=== PATIENT | male | born 2000 | race Caucasian/White ===

== ENCOUNTER 2025-07-11 06:43 | Emergency (ER) | payer OTHER, SELFPAY ==
[2025-07-11] VITALS (50 sets, daily range): BP systolic 74–100; BP diastolic 32–62; PULSE 74–115; O2SAT 93–100; BMI 21.3
--- NOTE | 2025-07-11 06:40 | ECG_ITS ---
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 Measurements Intervals [place] Rate: 112 P: 61 FL: 120 QRS: 70 QRSD: 96 T: 12 QT: 320 QTc: 386 Interpretive Statements 1120 Sinus tachycardia 2420 RSR (QR) in lead V1/V2, consistent with right ventricular conduction delay 4068 Nonspecific [place] abnormality 9140 abnormal rhythm ECG No previous ECG available for comparison Electronically Signed On 07-11-2025 17:40:04 EDT by GALI ALVAREZ M.D.
--- NOTE | 2025-07-11 06:51 | ED.OVERDOSE1 ---
HPI HPI - Overdose General Chief Complaint: Overdose Stated Complaint: OVERDOSE Time Seen by Provider: 07/11/25 06:50 Source: other Source comment: EMS Mode of arrival: ambulance History of Present Illness HPI Narrative: This 25-year-old male is brought to the emergency department by EMS from a truck stop where he was found unresponsive in the bathroom. The patient was taken to [facility] yesterday by his uncle for a history of alcohol, benzodiazepine and other substance abuse. According to EMS he was able to obtain beer, kratom and benzodiazepines at the truck stop. He was poorly responsive upon their arrival and given 1 mg of IV Narcan with clinical improvement in his condition. Upon arrival he smells like alcohol and is smiling and poorly cooperative but not agitated. He was at [facility] for several hours earlier in the evening but there was not a doctor there and nobody attended to him so he called a car service and left. Related Data Allergies Allergy/AdvReac Type Severity Reaction Status Date / Time Sulfa (Sulfonamide Allergy Mild Hives Verified 07/11/25 06:51 Antibiotics) Review of Systems ROS Status of ROS 10 or more systems reviewed and unremarkable except as noted in history and below Exam Narrative Exam Narrative: Pt is awake, alert, appears intoxicated, smiling, cooperative but has difficulty following commands, pupils are 3 to 4 mm equal and reactive, mucous membranes are moist and pink, lungs are clear, abdomen is soft, lower extremities are nontender, he is moving all extremities. He smells of alcohol. Vital signs are stable. Constitutional Vital Signs, click to edit/add: Last Vital Signs Pulse 115 H 07/11/25 06:45 Resp 15 07/11/25 06:45 BP 100/62 07/11/25 06:45 Pulse Ox 99 07/11/25 06:45 O2 Del Method Room Air 07/11/25 06:45 Course Vital Signs Vital signs: Vital Signs Pulse Rate 115 H 07/11/25 06:45 Respiratory Rate 15 07/11/25 06:45 Blood Pressure 100/62 07/11/25 06:45 Pulse Oximetry 99 07/11/25 06:45 Oxygen Delivery Method Room Air 07/11/25 06:45 Pulse Rate 115 H 07/11/25 06:45 Respiratory Rate 15 07/11/25 06:45 Blood Pressure 100/62 07/11/25 06:45 Pulse Oximetry 99 07/11/25 06:45 Oxygen Delivery Method Room Air 07/11/25 06:45 MDM - Overdose MDM Narrative Medical decision making narrative: Patient is brought to emergency department by EMS from a truck stop after he was found unresponsive in a bathroom. He admits to using kratom, benzodiazepines and alcohol. He was given Narcan prior to arrival. His vital signs are stable with tachycardia upon arrival. He is awake alert, appears intoxicated, able to follow some commands, no gross focal deficits noted. EKG is a sinus tachycardia at 112 bpm with no acute changes. He was given IV fluids and placed on the awake overnight monitor. He will be observed while in the emergency department. He will be signed out to the incoming physician at 7 AM. Discharge Plan Discharge Patient Disposition: Still a Patient
[2025-07-11 07:03] LABS: Hematocrit 35.6 % (42.0-54.0); Hemoglobin 12.2 g/dL (14.0-18.0); Immature Granulocytes Abs Auto 0.01 10^3/uL (0.00-0.03); Immature Granulocytes Pct Auto 0.2 % (0.0-0.5); Lymphocytes Absolute Auto 2.0 10^3/uL (1.2-3.8); Mean Corpuscular HGB Conc 34.3 g/dL (29.9-35.2); Mean Corpuscular Hemoglobin 29.4 pg (25.9-34.0); Mean Corpuscular Volume 85.8 fL (80.0-94.0); Platelet Count 292 10^3/uL (150-450); Red Blood Count 4.15 10^6/uL (4.70-6.10); White Blood Count 5.3 10^3/uL (4.0-11.0)
--- OUTSIDE RECORDS SUMMARY | 2025-07-11 07:05 | XMS_ITS | Clinical Summary ---
Author Organization [facility] Address [address] [place] [address] Phone Care Team Providers Care Headline Writer Name Role Phone WaterfordBennie ellis Primary Care Provider [phone] Allergies Active AllergyReactionsCriticalityNoted DateCommentsSulfa (Sulfonamide Antibiotics)Other05/21/2025 Medications MedicationSigDispense QuantityRefillsLast FilledStart DateEnd DateStatus cloNIDine (Catapres) 0.1 mg tablet Take 1 tablet by mouth four times daily for 8 doses, then 1 tablet three times daily for 3 doses, then 1 tablet twice daily for 2 doses, then 1 tablet at bedtime on the final day 14 tablet 05/21/2025 4:57 PM EDT5Active PHENobarbital (Luminal) 16.2 mg tablet Take 4 tablets (64.8 mg) by mouth every 8 hours for 3 doses, THEN 3 tablets (48.6 mg) every 8 hoursfor 3 doses, THEN 2 tablets (32.4 mg) every 6 hours for 4 doses, THEN 2 tablets (32.4 mg) every 8 hours for 3 doses, THEN 1 tablet (16.2 mg) every 8 hours for 3 doses. 38 tablet 05/21/2025 4:57 PM EDT5Active hydrOXYzine HCL (Atarax) 50 mg tablet Take 1 tablet by mouth every 8 hours as needed 30 tablet 05/21/2025 4:57 PM EDT5Active traZODone (Desyrel) 50 mg tablet Take 1 tablet (50 mg) by mouth as needed at bedtime. 10 tablet 05/21/2025 4:57 PM EDT5Active nicotine polacrilex (Nicorette) 2 mg gum Chew and park 1 piece every 4 hours as needed 20 each 05/21/2025 4:57 PM EDT5Active ondansetron ODT (Zofran-ODT) 4 mg disintegrating tablet Dissolve 1 tablet (4 mg) in the mouth 3 times a day as needed. 10 tablet 05/21/2025 4:57 PM EDT5Active melatonin 3 mg tablet Take 1 tablet (3 mg) by mouth as needed at bedtime. 14 tablet 05/21/2025 4:57 PM EDT5Active diphenhydrAMINE (BENADryl) 25 mg capsule Take 1 capsule (25 mg) by mouth every 6 hours if needed. 12 capsule 05/21/2025 4:57 PM EDT5Active acetaminophen (Tylenol) 325 mg tablet Take 2 tablets (650 mg) by mouth every 4 hours if needed. 24 tablet 05/21/2025 4:57 PM EDT5Active ibuprofen 400 mg tablet Take 1 tablet (400 mg) by mouth every 6 hours if needed. 16 tablet 05/21/2025 4:57 PM EDT5Active thiamine (Vitamin B-1) 100 mg tablet Take 1 tablet (100 mg) by mouth 2 times a day. 28 tablet 05/21/2025 4:57 PM EDT5Active folic acid (Folvite) 1 mg tablet Take 1 tablet (1 mg) by mouth 2 times a day. 28 tablet 05/21/2025 4:57 PM EDT5Active naloxone (Narcan) 4 mg/0.1 mL nasal spray Instill one spray intranasally for opioid overdose; reapeat in 5 minutes if no response 2 each 05/21/2025 4:57 PM EDT5Active LORazepam (Ativan) 1 mg tablet take 1 to 2 tablet(s) by mouth every 4 hours as needed 6 tablet 05/22/2025 11:17 AM EDT5Active LORazepam (Ativan) 1 mg tablet Take 1 tablet (1 mg) by mouth once daily as needed. 3 tablet 05/23/2025 9:46 AM EDT5Active QUEtiapine (SEROquel) 50 mg tablet Take 1 tablet (50 mg) by mouth once daily at bedtime. 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 Last 3 Months Social History Tobacco UseTypesPacks/DayYears UsedDateSmoking Tobacco: Never AssessedSex and Gender InformationValueDate RecordedSex Assigned at BirthNot on fileLegal Sex Male08/12/2022 5:54 PM ESTGender IdentityNot on fileSexual OrientationNot on file Last Filed Vital Signs Vital SignReadingTime TakenCommentsBlood Aaavmpft224/65010/18/2022 5:41 PM EST Itfdu211210/18/2022 5:41 PM LSNRhwkhwnancl49.3 ??C (97.3 ??F)09/22/2022 3:15 PM ESTRespiratory Jwqm406609/22/2022 3:15 PM ESTOxygen Yakpciiqmn57%09/22/2022 3:15 PM ESTInhaled Oxygen Concentration--Ssowmn53.1 kg (148 lb 0.6 oz)10/18/2022 2:43 PM XNUYfpmph459.3 cm (5' 9 )10/18/2022 2:43 PM ESTBody Mass Index21.8610/18/2022 2:43 PM EST Plan of Treatment Health MaintenanceDue DateLast DoneCommentsLipid Panel1999Yearly Adult Rklslphh1999MMR Vaccines (1 of 1 - Standard series)2000Hepatitis A Vaccines (2 of 2 - 2-dose series)HPV Vaccines (1 - Male 3- dose series)2014Hepatitis B Vaccines (1 of 3 - 19+ 3-dose series) 2018DTaP/Tdap/Td Vaccines (2 - Td or Tdap)Influenza Vaccine (#1)2025OVID-19 Vaccine (1 - season)2025Zoster Vaccines (1 of 2)Meningococcal VaccineAged Out04/06/2012No longer eligible based on patient's age to complete this topicHIV Screening Ijtaznwkk70/05/2025Hepatitis C YefcsjapwKtjftbfff27/05/2025HIB VaccinesAged Out No longer eligible based on patient's age to complete this topicIPV VaccinesAged OutNo longer eligible based on patient's age to complete this topicPneumococcal Vaccine: Pediatrics and At-Risk Adult PatientsAged OutNo longer eligible based on patient's age to complete this topicRotavirus VaccinesAged OutNo longer eligible based on patient's age to complete this topic Procedures Procedure NamePriorityDate/TimeAssociated DiagnosisCommentsPHLEB CHARGE - VENIPUNCTURE (LAB USE ONLY)Aprqtjl0905/23/2025 11:00 AM EDT Encounter for general adult medical examination without abnormal findings Contact with and (suspected) exposure to other viral communicable diseases RUEYQXTAodndid42/05/2025 11:00 AM EDT Encounter for general adult medical examination without abnormal findings Contact with and (suspected) exposure to other viral communicable diseases HEPATITIS PANEL, LEHIDYwaazdc92/05/2025 11:00 AM EDT Encounter for general adult medical examination without abnormal findings Contact with and (suspected) exposure to other viral communicable diseases SYPHILIS SCREENING WITH QKYVULTwmejto92/05/2025 11:00 AM EDT Encounter for general adult medical examination without abnormal findings Contact with and (suspected) exposure to other viral communicable diseases HIV 1/2 ANTIGEN/ANTIBODY SCREEN WI REFLEX TO YFXMLJEECJHOYuynnkf38/05/2025 11:00 AM EDT Encounter for general adult medical examination without abnormal findings Contact with and (suspected) exposure to other viral communicable diseases CBC WITH AUTO BDWPGECPHSOORgonwff92/05/2025 11:00 AM EDT Encounter for general adult medical examination without abnormal findings Contact with and (suspected) exposure to other viral communicable diseases COMPREHENSIVE METABOLIC UZSJSEtqhwju56/05/2025 11:00 AM EDT Encounter for general adult medical examination without abnormal findings Contact with and (suspected) exposure to other viral communicable diseases BUPRENORPHINE SCREEN TO CONFIRM,IDFPVDzypqyq91/03/2025 2:40 PM EDT 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 GABAPENTIN,QCPIWKuowhtm72/03/2025 2:40 PM EDT Other [facility] (current) drug therapy DRUG SCREEN,OQQBVLibvyxj97/03/2025 2:40 PM EDT 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 from Last 3 Months Results * Phleb Charge - Venipuncture (Lab Use Only) (05/23/2025 11:00 AM EDT)Specimen (Source)Anatomical Location / LateralityCollection Method / VolumeCollection TimeReceived TimeBloodVenous blood specimen / Ohxzbyz2605/23/2025 11:00 AM EDT 05/23/2025 11:25 AM EDT Narrative Authorizing ProviderResult TypeResult StatusVincent E Coven PUBLIC STENOGRAPHER-CNPLAB BLOOD ORDERABLESFinal ResultPerforming OrganizationAddressCity/State/ZIP CodePhone Number [facility] [address] [place] [address] * (ABNORMAL) CBC and Auto Differential (05/23/2025 11:00 AM EDT)ComponentValue Ref RangeTest MethodAnalysis TimePerformed AtPathologist SignatureWBC4.2(L)4.4 - 11.3 x10*3/uL LAB HEMATOLOGY METHOD 05/23/2025 11:38 [facility] LABnRBC0.00.0 - 0.0 /100 WBCs LAB HEMATOLOGY METHOD 05/23/2025 11:38 AM [facility] LABRBC4.674.50 - 5.90 x10*6/uL LAB HEMATOLOGY METHOD 05/23/2025 11:38 AM [facility] CYQSzbuaczuqf04.513.5 - 17.5 g/dL LAB HEMATOLOGY METHOD 05/23/2025 11:38 AM [facility] OSCQtxhuliyin51.5(L)41.0 - 52.0 % LAB HEMATOLOGY METHOD 05/23/2025 11:38 AM [facility] FHJKIA1745 - 100 fL LAB HEMATOLOGY METHOD 05/23/2025 11:38 AM [facility] COBXIG70.926.0 - 34.0 pg LAB HEMATOLOGY METHOD 05/23/2025 11:38 AM [facility] ASYIMPW03.332.0 - 36.0 g/dL LAB HEMATOLOGY METHOD 05/23/2025 11:38 AM [facility] LFYVXB00.311.5 - 14.5 % LAB HEMATOLOGY METHOD 05/23/2025 11:38 AM [facility] IMOPrdyuslib564(H)150 - 450 x10*3/uL LAB HEMATOLOGY METHOD 05/23/2025 11:38 AM [facility] LABNeutrophils %48.640.0 - 80.0 % LAB HEMATOLOGY METHOD 05/23/2025 11:38 AM [facility] LABImmature Granulocytes %, Automated0.50.0 - 0.9 % LAB HEMATOLOGY METHOD 05/23/2025 11:38 AM [facility] LABComment:Immature Granulocyte Count (IG) includes promyelocytes, myelocytes and metamyelocytes but does not i nclude bands. Percent differential counts (%) should be interpreted in the context of the absolute cell counts (cells/UL).Lymphocytes %43.513.0 - 44.0 % LAB HEMATOLOGY METHOD 05/23/2025 11:38 AM [facility] LABMonocytes %5.22.0 - 10.0 % LAB HEMATOLOGY METHOD 05/23/2025 11:38 AM [facility] LABEosinophils %1.20.0 - 6.0 % LAB HEMATOLOGY METHOD 05/23/2025 11:38 AM [facility] LABBasophils %1.00.0 - 2.0 % LAB HEMATOLOGY METHOD 05/23/2025 11:38 AM [facility] LABNeutrophils Absolute2.051.20 - 7.70 x10*3/uL LAB HEMATOLOGY METHOD 05/23/2025 11:38 AM [facility] LABComment:Percent differential counts (%) should be interpreted in the context of the absolute cell counts (ce lls/uL).Immature Granulocytes Absolute, Automated0.020.00 - 0.70 x10*3/uL LAB HEMATOLOGY METHOD 05/23/2025 11:38 AM [facility] LABLymphocytes Absolute1.831.20 - 4.80 x10*3/uL LAB HEMATOLOGY METHOD 05/23/2025 11:38 AM [facility] LABMonocytes Absolute0.220.10 - 1.00 x10*3/uL LAB HEMATOLOGY METHOD 05/23/2025 11:38 AM [facility] LABEosinophils Absolute0.050.00 - 0.70 x10*3/uL LAB HEMATOLOGY METHOD 05/23/2025 11:38 AM [facility] LABBasophils Absolute0.040.00 - 0.10 x10*3/uL LAB HEMATOLOGY METHOD 05/23/2025 11:38 AM [facility] LABSpecimen (Source)Anatomical Location / LateralityCollection Method / VolumeCollection TimeReceived TimeBlood Venous blood specimen / Hgeaqye6705/23/2025 11:00 AM EDT05/23/2025 11:25 AM EDT Narrative Authorizing ProviderResult TypeResult StatusVincent E Coven PUBLIC STENOGRAPHER-CNPLAB BLOOD ORDERABLESFinal ResultPerforming OrganizationAddressCity/State/ZIP CodePhone Number [facility] [address] [place] [address] * Syphilis Screen with Reflex (05/23/2025 11:00 AM EDT)ComponentValueRef Range Test MethodAnalysis TimePerformed AtPathologist SignatureSyphilis Total Ab NonreactiveNonreactive LAB CHEMISTRY METHOD 05/24/2025 10:34 AM EDTUHCMC LABComment: No significant level of Treponema pallidum antibody detected. Repeat testing in 2 to 4 weeks may be considered if early infection or incubating syphilis infection is suspected. Specimen (Source)Anatomical Location / LateralityCollection Method / Volume Collection TimeReceived TimeBloodVenous blood specimen / Jdskagr8705/23/2025 11:00 AM EDT05/23/2025 11:25 AM EDT Narrative Authorizing ProviderResult TypeResult StatusVincent E Coven PUBLIC STENOGRAPHER-[facility] BLOOD ORDERABLESFinal ResultPerforming OrganizationAddressCity/State/ZIP CodePhone Number [facility] [address] [place] [address] * Hepatitis Panel, Acute (05/23/2025 11:00 AM EDT)ComponentValueRef RangeTest MethodAnalysis TimePerformed AtPathologist SignatureHepatitis B Surface AntigenNonreactiveNonreactive LAB IMMUNOASSAY METHOD 05/23/2025 11:43 PM [facility] LABComment: Biotin interference may cause falsely decreased results. Patients taking a Biotin dose of up to 5 mg/day should refrain from taking Biotin for 24 hours before sample collection. [facility] further information. Hepatitis A Antibody; IgMNonreactiveNonreactive LAB IMMUNOASSAY METHOD 05/23/2025 11:43 PM [facility] LABComment: Biotin interference may cause falsely decreased results. Patients taking a Biotin dose of up to 5 mg/day should refrain from taking Biotin for 24 hours before sample collection. [facility] for further information. Hepatitis B Core Antibody; IgMNonreactiveNonreactive LAB IMMUNOASSAY METHOD 05/23/2025 11:43 PM [facility] LABComment: Results from patients taking biotin supplements or receiving high-dose biotin therapy should be interpreted with caution due to possible interference with this test. Providers may contact their locallaboratory for further information. Hepatitis C AnitbodyNonreactiveNonreactive LAB IMMUNOASSAY METHOD 05/23/2025 11:43 PM [facility] LABComment:Results from patients taking biotin supplements or receiving high-dose biotin therapy should be interpreted with caution due to possible interference with this test. Providers may contact their locallaboratory for further information.Specimen (Source)Anatomical Location / LateralityCollection Method / VolumeCollection TimeReceived TimeBloodVenous blood specimen / Frwxrdd8105/23/2025 11:00 AM EDT05/23/2025 11:25 AM EDT Narrative Authorizing ProviderResult TypeResult StatusVincent E Carlos MONTAGUEN-CNPLAB BLOOD ORDERABLESFinal ResultPerforming OrganizationAddressCity/State/ZIP CodePhone Number [facility] [address] [place] [phone] * HIV 1/2 Antigen/Antibody Screen with Reflex to Confirmation (05/23/2025 11:00 AM EDT)ComponentValueRef RangeTest MethodAnalysis TimePerformed AtPathologist SignatureHIV 1/2 Antigen/Antibody Screen with Reflex to Confirmation NonreactiveNonreactive LAB IMMUNOASSAY METHOD 05/24/2025 12:19 AM EDTFIRST [facility] LABSpecimen (Source)Anatomical Location / LateralityCollection Method / VolumeCollection TimeReceived TimeBloodVenous blood specimen / Vtqnyom8505/23/2025 11:00 AM EDT05/23/2025 11:25 AM EDT Narrative [facility] - 05/24/2025 12:19 AM EDT HIV Ag/Ab screen is performed using the Siemens [employer] HIV Ag/Ab Combo assay which detects the presence of HIV p24 antigen as well as antibodies to HIV-1 (Group M and O) and HIV-2. No laboratory evidence of HIV infection. If acute HIV infection is suspected, consider testing for HIV RNA by PCR (viral load). Authorizing ProviderResult TypeResult StatusVincent E SebastienUniversity of Colorado Hospital-JOSIAH B. THOMAS HOSPITALLAB BLOOD ORDERABLESFinal ResultPerforming OrganizationAddressCity/State/ZIP CodePhone Number [facility] [address] [place] [phone] * Alcohol (05/23/2025 11:00 AM EDT)ComponentValueRef RangeTest MethodAnalysis TimePerformed AtPathologist SignatureAlcohol<10<=10 mg/dL LAB CHEMISTRY METHOD 05/23/2025 11:50 AM [facility] LABComment:For medical use only. Specimen (Source)Anatomical Location / LateralityCollection Method / Volume Collection TimeReceived TimeBloodVenous blood specimen / Hzdgxkg1905/23/2025 11:00 AM EDT05/23/2025 11:25 AM EDT Narrative Authorizing ProviderResult TypeResult StatusVincent E Coven PUBLIC STENOGRAPHER-CNPLAB BLOOD ORDERABLESFinal ResultPerforming OrganizationAddressCity/State/ZIP CodePhone Number [facility] [address] [place] [address] * Comprehensive Metabolic Panel (05/23/2025 11:00 AM EDT)ComponentValueRef Range Test MethodAnalysis TimePerformed AtPathologist XamqqfzctAogbrsx2255 - 99 mg/dL LAB CHEMISTRY METHOD 05/23/2025 11:50 AM [facility] SZYZxidqq915221 - 145 mmol/L LAB CHEMISTRY METHOD 05/23/2025 11:50 AM [facility] LABPotassium5.13.5 - 5.3 mmol/L LAB CHEMISTRY METHOD 05/23/2025 11:50 AM [facility] ZKWJqruaeme19793 - 107 mmol/L LAB CHEMISTRY METHOD 05/23/2025 11:50 AM [facility] AHEBeudtbwwbwg5242 - 32 mmol/L LAB CHEMISTRY METHOD 05/23/2025 11:50 AM [facility] LABAnion Npo7602 - 20 mmol/L LAB CHEMISTRY METHOD 05/23/2025 11:50 AM [facility] LABUrea Mgtkoyfw344 - 23 mg/dL LAB CHEMISTRY METHOD 05/23/2025 11:50 AM [facility] LABCreatinine1.020.50 - 1.30 mg/dL LAB CHEMISTRY METHOD 05/23/2025 11:50 AM [facility] LABeGFR>90>60 mL/min/1.73m*2 LAB CHEMISTRY METHOD 05/23/2025 11:50 AM [facility] LABComment: Calculations of estimated GFR are performed using the 2020 CKD-EPI Study Refit equation without therace variable for the IDMS-Traceable creatinine methods. https://jasn.asnjournals.org/content//ASN.1628118755 Calcium9.88.6 - 10.3 mg/dL LAB CHEMISTRY METHOD 05/23/2025 11:50 AM [facility] LABAlbumin4.53.4 - 5.0 g/dL LAB CHEMISTRY METHOD 05/23/2025 11:50 AM [facility] LABAlkaline Fchbhvnzajm5545 - 120 U/L LAB CHEMISTRY METHOD 05/23/2025 11:50 AM [facility] LABTotal Protein7.16.4 - 8.2 g/dL LAB CHEMISTRY METHOD 05/23/2025 11:50 AM [facility] QVBOND249 - 39 U/L LAB CHEMISTRY METHOD 05/23/2025 11:50 AM [facility] LABBilirubin, Total0.40.0 - 1.2 mg/dL LAB CHEMISTRY METHOD 05/23/2025 11:50 AM [facility] KMGPOS5476 - 52 U/L LAB CHEMISTRY METHOD 05/23/2025 11:50 AM [facility] LABComment:Patients treated with Sulfasalazine may generate falsely decreased results for ALT.Specimen (Source) Anatomical Location / LateralityCollection Method / VolumeCollection Time Received TimeBloodVenous blood specimen / Ddwdtlt7505/23/2025 11:00 AM EDT 05/23/2025 11:25 AM EDT Narrative Authorizing ProviderResult TypeResult StatusVincent E Coven PUBLIC STENOGRAPHER-CNPLAB BLOOD ORDERABLESFinal ResultPerforming OrganizationAddressCity/State/[facility] CodePhone Number [facility] [address] [place] [address] * Drug Screen, Urine (05/21/2025 2:40 PM EDT)ComponentValueRef RangeTest Method Analysis TimePerformed AtPathologist SignatureAmphetamine Screen, Urine Presumptive NegativePresumptive Negative LAB CHEMISTRY METHOD 05/21/2025 7:03 PM [facility] LABComment: CUTOFF LEVEL: 500 NG/ML Cross-reactivity has been reported with high concentrations of the following drugs: buproprion, chloroquine, chlorpromazine, ephedrine, mephentermine, fenfluramine, phentermine, phenylpropanolamine, pseudoephedrine, and propranolol. Barbiturate Screen, UrinePresumptive NegativePresumptive Negative LAB CHEMISTRY METHOD 05/21/2025 7:03 PM [facility] LABComment:CUTOFF LEVEL: 200 NG/ML Benzodiazepines Screen, UrinePresumptive NegativePresumptive Negative LAB CHEMISTRY METHOD 05/21/2025 7:03 PM [facility] LABComment:CUTOFF LEVEL: 200 NG/ML Cannabinoid Screen, UrinePresumptive NegativePresumptive Negative LAB CHEMISTRY METHOD 05/21/2025 7:03 PM [facility] LABComment:CUTOFF LEVEL: 50 NG/ML Cocaine Metabolite Screen, UrinePresumptive NegativePresumptive Negative LAB CHEMISTRY METHOD 05/21/2025 7:03 PM [facility] LABComment:CUTOFF LEVEL: 150 NG/ML Fentanyl Screen, UrinePresumptive NegativePresumptive Negative LAB CHEMISTRY METHOD 05/21/2025 7:03 PM [facility] LABComment:CUTOFF LEVEL: 5 NG/ML Opiate Screen, UrinePresumptive NegativePresumptive Negative LAB CHEMISTRY METHOD 05/21/2025 7:03 PM [facility] LABComment: CUTOFF LEVEL: 300 NG/ML The opiate screen does not detect fentanyl, meperidine, or tramadol. Oxycodone is not consistently detected (refer to Oxycodone Screen, Urine result). Oxycodone Screen, UrinePresumptive NegativePresumptive Negative LAB CHEMISTRY METHOD 05/21/2025 7:03 PM [facility] LABComment: CUTOFF LEVEL: 100 NG/ML This test will accurately detect both oxycodone and oxymorphone. PCP Screen, UrinePresumptive NegativePresumptive Negative LAB CHEMISTRY METHOD 05/21/2025 7:03 PM [facility] LABComment: CUTOFF LEVEL: ??25 NG/ML Cross-reactivity has been reported with dextromethorphan. Methadone Screen, UrinePresumptive NegativePresumptive Negative LAB CHEMISTRY METHOD 05/21/2025 7:03 PM [facility] LABComment: CUTOFF LEVEL: 150 NG/ML The metabolite F-magab-uzpgawntwupcix (LAAM) is not detected by this method in concentrations that would be found in the urine of patients on LAAM therapy. Specimen (Source)Anatomical Location / LateralityCollection Method / Volume Collection TimeReceived TimeUrineUrine specimen / Lsfggst7805/21/2025 2:40 PM EDT 05/21/2025 5:25 PM EDT [facility] - 05/21/2025 7:03 PM EDT Drug screen results are presumptive and should not be used to assess compliance with prescribed medication. Contact the performing [facility] laboratory to add-on definitive confirmatory testing if clinically indicated. Toxicology screening results are reported qualitatively. The concentration must ??be greater than or equal to the cutoff to be reported as positive. The concentration at which the screening test can detect an individual drug or metabolite varies. The absence of expected drug(s) and/or drug metabolite(s) may indicate non-compliance, inappropriate timing of specimen collection relative to drug administration, poor drug absorption, diluted/adulterated urine, or limitations of testing. For medical purposes only; not valid for forensic use. Interpretive questions should be directed to the laboratory medical directors. Authorizing ProviderResult TypeResult StatusVincent E Sebastienen PUBLIC STENOGRAPHER-CNPLAB URINE ORDERABLESFinal ResultPerforming OrganizationAddressCity/State/ZIP CodePhone Number [facility] [address] [place] [address] * Gabapentin,Urine (05/21/2025 2:40 PM EDT)ComponentValueRef RangeTest Method Analysis TimePerformed AtPathologist SignatureGABAPENTIN,URINE<5.0ug/mL 05/25/2025 9:31 AM EDTARUP [facility] ([facility])Comment: INTERPRETIVE INFORMATION: Gabapentin, Urine Positive cutoff: 5.0 ug/mL For medical purposes only; not valid for forensic use. The absence of expected drug(s) and/or drug metabolite(s) may indicate non-compliance, inappropriate timing of specimen collection relative to drug administration, poor drug absorption, diluted/adulterated urine, or limitations of testing. The concentration value must be greater than or equal to the cutoff to be reported as a quantitative result. Interpretive questions should be directed to the laboratory. ?? This test was developed and its performance characteristics determined by [facility]. It has not been cleared or approved by the [place] Food and Drug Administration. This test was performed in a CLIA certified laboratory and is intended for clinical purposes. Performed By: [facility] [address] [place] [address] Transport Nurse: Ino Sanchez MD, PhD CLIA Number: [id number] Specimen (Source)Anatomical Location / LateralityCollection Method / Volume Collection TimeReceived TimeUrineUrine specimen / Xhpsqxt4005/21/2025 2:40 PM EDT 05/21/2025 5:25 PM EDT Narrative Authorizing ProviderResult TypeResult StatusVincent E Coven PUBLIC STENOGRAPHER-CNPLAB URINE ORDERABLESFinal ResultPerforming OrganizationAddressCity/State/ZIP CodePhone Number [facility] ([facility]) [address] [place] [address] * Buprenorphine Screen To Confirm,Urine (05/21/2025 2:40 PM EDT)ComponentValue Ref RangeTest MethodAnalysis TimePerformed AtPathologist Signature Buprenorphine Screen, UrineNegativeng/mL05/23/2025 5:10 AM EDT[facility] ([facility])Comment: Presumptively Negative by immunoassay. ??Testing by mass spectrometry is available on request. INTERPRETIVE INFORMATION: Buprenorphine Screen, Urine Methodology: Immunoassay Positive Cutoff: 5 ng/mL Buprenorphine,Urine Screen InterpretationSee Note05/23/2025 5:10 AM ED[facility] ([facility])Comment: INTERPRETIVE INFORMATION: Flagging indicates a positive result; not that the result is abnormal. Presumptive negative results for drug(s) and/or drug metabolite(s) may indicate non-compliance, inappropriate timing of specimen collection relative to drug administration, poor drug absorption, diluted/adulterated urine, or limitations of testing. The concentration at which the screening test can detect a drug or metabolite varies within a drug class. For medical purposes only; not valid for forensic use. Performed By: [facility] [address] [place] [id number] Transport Nurse: Ino Sanchez MD, PhD CLIA Number: [id number] Specimen (Source)Anatomical Location / LateralityCollection Method / Volume Collection TimeReceived TimeUrineUrine specimen / Aaxatmi4405/21/2025 2:40 PM EDT 05/21/2025 5:25 PM EDT Narrative Authorizing ProviderResult TypeResult StatusVincent E Coven PUBLIC STENOGRAPHER-CNPLAB URINE ORDERABLESFinal ResultPerforming OrganizationAddressCity/State/ZIP CodePhone Number [facility] ([facility]) [address] [place] [address] from Last 3 Months Insurance Care Teams Team MemberRelationshipSpecialtyStart DateEnd Bennie Ramos DO [facility]07/06/09
--- NOTE | 2025-07-11 07:11 | PC.NURSE ---
Patient states [facility] out [facility] and had a car company drive him to a truck stop/gas station. there he states he brought a beer, a joint, benzos, and kratom. states he took 4 kratom pills. ems states he was found unresponsive in the bathroom. on arrival patient was responding a little and had pin point pupils. reports breathing was shallow. they started an IV and gave 1mg narcan. patient started to come around, vitals were stable. patient arrived awake but appears kind of drowsy. patient recall of events match that of EMS report. states he does not want to go back to rehab because he doesn't want to be institutionalized. denies pain just c/o of being cold. patient is cooperative at this time.
[2025-07-11] MEDS: 0.9 % SODIUM CHLORIDE 1,000 ML 125 ML IV (07:21)
[2025-07-11 07:27] LABS: Alanine Aminotransferase 33 U/L (16-63); Albumin Globulin Ratio 1.3; Albumin Level 4.0 g/dL (3.4-5.0); Alkaline Phosphatase 63 U/L (46-116); Anion Gap 14.2; Aspartate Amino Transferase 16 U/L (15-37); Blood Urea Nitrogen 8.0 mg/dL (7.0-18.0); Calcium 8.9 mg/dL (8.5-10.1); Carbon Dioxide 29.5 mmol/L (21.0-32.0); Chloride 102 mmol/L (98-107); Estimated GFR (African America >60 (>=60 mL/min/1.73m^2); Estimated GFR (Non-African Ame >60 (>=60 mL/min/1.73m^2); Globulin 3.0 g/dL; Glucose 122 mg/dL (74-106); Potassium 3.7 mmol/L (3.5-5.1); Salicylate <2.8 mg/dL (<=19.9); Sodium 142 mmol/L (136-145); Total Protein 7.0 g/dL (6.4-8.2)
[2025-07-11 07:29] LABS: Acetaminophen <2.0 ug/mL (10.0-30.0)
[2025-07-11] MEDS: 0.9 % SODIUM CHLORIDE 1,000 ML 1000 ML IV (08:19)
[2025-07-11 12:31] LABS: Cannabinoid Screen Urine POSITIVE (NEGATIVE); Methamphetamines Screen Urine NEGATIVE (NEGATIVE); Tricyclic Antidepressant Urine NEGATIVE (NEGATIVE)
== END 2025-07-11 12:52 | disposition home or self-care (01) ==
PROVIDERS: Emergency Provider Emergency Medicine
DX: F19.90 Other psychoactive substance use, unspecified, uncomplicated (principal)
CPT/HCPCS: 36415; 80053; 80179; 80307; 80320; 80329; 85025; 93005; 99284